=== PATIENT | female | born 1975 | race Caucasian/White ===

== ENCOUNTER 2017-08-01 10:36 | Emergency (ER) | payer OTHER ==
[~2017-08-01 10:36] MED LIST: AMIT100T53 PO; BUPR-136 PO; BUSP10TA95 PO; BUSP15TA69 PO; CEPH250C37 PO; ESCI10TA8 PO; ESCI20TA8 PO; HYDR-6016 PO; IBU800 PO; IBUP600T22 PO; LOR5 PO; LOR5/325 PO; NAPR500T75 PO; NITR-105 PO; NO ROUTINE MEDS; OMEP-218 PO; ONDA8TAB98 PO; PER PO; TRAZ-156 PO; TRAZ-163 PO; ZOLP-1 PO
[2017-08-01] MEDS ORDERED: DIPHTH/TETANUS/ACEL. PERTUSSIS IM ONLY ONE (10:45)
--- NOTE | 2017-08-01 10:58 | ER Report ---
History and Physical Time Seen By MD: 10:57 Hx. of Stated Complaint: patient reports that she cut her hand on a broken lightbulb HPI/ROS Patient is 42 y.o female presenting for left hand laceration the occurred 1/2 hour prior to ER admit. She was at worked, cleaning out a closet when she turned and hit her hand on a light bulb her co-worker was holding. She denies possible abuse. She does not have a current tetanus vaccination. Allergies: Coded Allergies: No Known Drug Allergies (Verified , 10/21/15) Home Meds Active Scripts Amitriptyline Hcl (AMITRIPTYLINE HCL) 100 Mg Tablet, 0.5-1 TAB PO QHS, #30 TAB 0 Refills Please schedule a follow up appointment with Dr. Beckford for further refills Prov:ZULLY BECKFORD MD 03/23/17 Buspirone Hcl (BUSPIRONE HCL) 10 Mg Tablet, 10 MG PO BID, #60 TAB 0 Refills Please schedule a follow up appointment with Dr. Beckford for further refills. Prov:ZULLY BECKFORD MD 03/23/17 Escitalopram Oxalate (ESCITALOPRAM OXALATE) 20 Mg Tablet, 20 MG PO QDAY, #30 TAB 11 Refills Prov:ZULLY BECKFORD MD 02/14/17 Reported Medications Ibuprofen (IBUPROFEN) 600 Mg Tablet, 1 TAB PO Q6H Y for PAIN, TAB 10/21/15 Past Medical/Surgical History A past medical history of alcohol use. Patient has surgical history of right anterior cruciate ligament repair. Reviewed Nurses Notes: Yes Hx Smoking: Yes Smoking Status: Current: Every Day Smoker Exposure to Second Hand Smoke?: Yes Hx Substance Use Disorder: No Hx Alcohol Use: Yes (daily drinker 3-4) Constitutional Vital Sign - Last 24 Hours 08/01/17 08/01/17 10:39 11:35 Temp 97.9 Pulse 81 74 Resp 16 20 B/P (MAP) 121/84 126/84 (98) Pulse Ox 97 Physical Exam General: Calm and under no acute distress Resp: Clear and equal bilaterally Cardio: RRR, no murmurs, gallops, or rubs. Integument: Left dorsal hand superficial laceration 15 mm in length. No visible debris. MSK: No weakness or change in sensation. Psych: Appropriate mood and affect Differential Dx: Laceration Medical Decision Making ED Course/Re-evaluation ED Course Patient was admitted to the ER for a left hand laceration. The laceration was irrigated and cleaned. Her tetanus was updated. The patient was locally anesthetized with 2% lidocaine, draped, and sutured with three simple interrupted sutures. She was bandaged and discharged with infection prevention and care instructions. She will follow-up with her PCP in one week for suture removal. Decision to Disposition Date: Aug 01, 2017 Decision to Disposition Time: 11:30 Depart Departure Latest Vital Signs Vital Signs Date Time Temp Pulse Resp B/P (MAP) Pulse Ox O2 Delivery O2 Flow Rate FiO2 08/01/17 11:35 74 20 126/84 (98) 08/01/17 10:39 97.9 97 Impression: Primary Impression: Laceration Condition: Improved Disposition: HOME OR SELF-CARE Referrals: ZULLY BECKFORD MD (PCP) Patient Instructions: Hand Laceration Additional Instructions: Keep wound dry for 48 hours. Follow up with your primary care provider in the next 7-10 days to have sutures removed. Monitor for signs of infection; redness, swelling, heat, discharge, increasing pain or red streaking. Take Tylenol or Ibuprofen as needed for pain. Return to the ER with any concerns. You may change dressing as needed. MANA TALAVERA Aug 01, 2017 10:58
[2017-08-01 11:35] VITALS: BP 126/84
== END 2017-08-01 11:38 | disposition home or self-care (01) ==
LOC: ER 10:45
DX: S61.412A Laceration without foreign body of left hand, initial encounter (principal)
CPT/HCPCS: 90471; 90715; 99283